=== PATIENT | female | born 1975 | race Caucasian/White ===

== ENCOUNTER 2017-02-21 14:19 | Emergency (ER) | payer OTHER ==
[~2017-02-21] VITALS: Ht 160 cm; Wt 77.5 kg
[2017-02-21 14:24] VITALS: Ht 160 cm; Wt 77.5 kg
--- NOTE | 2017-02-21 15:19 | ERD ---
ER Documentation Chief Complaint Date/Time DATE: 02/21/17 Chief Complaint Vaginal bleeding, HPI The patient is a 41-year-old female, A0 who presents to the emergency department with complaint of vaginal bleeding. The patient reports that her last menstrual period was in September 2016, and she believes that she is approximately 17 weeks . However, she has not yet seen an STOREKEEPER HELPER, and has not had an ultrasound yet during this . The patient reports that earlier today she engaged in sexual activity. Approximally 1 hour ago, after using the restroom, she wiped and noted a small amount of vaginal spotting on the toilet paper. The bleeding has since mostly resolved. Therefore, she decided to present to the emergency department for further evaluation. She denies any abdominal pain, pelvic pain or cramping. Denies dysuria, hematuria, flank pain. Denies fevers, sweats, chills, nausea, vomiting or diarrhea. Denies any dizziness, weakness, chest pain, palpitations, shortness of breath or lower extremity swelling. No other complaints at this time. ROS All systems reviewed and are negative except as per history of present illness. Physical Exam Vitals Vital Signs Date Time Temp Pulse Resp B/P Pulse Ox O2 Delivery O2 Flow Rate FiO2 02/21/17 14:24 98.5 100 18 154/74 96 Physical Exam GENERAL APPEARANCE: Well-developed, well-nourished female in no acute distress. HEENT: Head is normocephalic, atraumatic. No scleral pallor or icterus. Pupils are equal, round, reactive to light. Extraocular movements intact. Moist mucous membranes. NECK: Supple. No masses. No tenderness. No lymphadenopathy. RESPIRATORY: Lungs are clear to auscultation bilaterally. No rales, rhonchi, or wheezing. CARDIOVASCULAR: Regular rate and rhythm. S1, S2 normal. Distal pulses are palpable 2+ bilaterally. Capillary refill is less than 2 seconds. GASTROINTESTINAL: Abdomen is soft, nondistended, nontender. No guarding. No rebound tenderness. No gross peritonitis. FLANKS: No CVA tenderness bilaterally. BACK: No midline tenderness or paraspinal muscle tenderness. EXTREMITIES: No clubbing, cyanosis or edema. Normal skin perfusion. Moving all extremities. No calf swelling or calf tenderness. NEUROLOGIC: The patient is alert, awake and oriented x3. INTEGUMENT: Skin is intact warm and dry. No rashes or petechiae present. PSYCHIATRIC: Cooperative. Appropriate. Result Diagram: 02/21/17 1531 Results 24 hrs Laboratory Tests Test 02/21/17 15:20 02/21/17 15:31 Urine Color YELLOW Urine Clarity SLIGHTLY CLOUDY Urine pH 5.0 Urine Specific [place] 1.013 Urine Ketones NEGATIVEmg/dL Urine Nitrite NEGATIVEmg/dL Urine Bilirubin NEGATIVEmg/dL Urine Urobilinogen NEGATIVEmg/dL Urine Leukocyte Esterase NEGATIVELeu/ul Urine Microscopic RBC 13/HPF Urine Microscopic WBC 1/HPF Urine Squamous Epithelial Cells FEW/HPF Urine Bacteria FEW/HPF Urine Hemoglobin 2+mg/dL Urine Glucose NEGATIVEmg/dL Urine Total Protein NEGATIVEmg/dl White Blood Count 7.310^3/ul Red Blood Count 4.2510^6/ul Hemoglobin 12.5g/dl Hematocrit 37.7% Mean Corpuscular Volume 88.7fl Mean Corpuscular Hemoglobin 29.4pg Mean Corpuscular Hemoglobin Concent 33.2g/dl Red Cell Distribution Width 15.1% Platelet Count 62942^3/UL Mean Platelet Volume 11.7fl Neutrophils % 67.6% Lymphocytes % 23.4% Monocytes % 7.1% Eosinophils % 1.1% Basophils % 0.5% Nucleated Red Blood Cells % 0.0/100WBC Neutrophils # (Manual) 4.910^3/ul Lymphocytes # 1.710^3/ul Monocytes # 0.510^3/ul Eosinophils # 0.110^3/ul Basophils # 0.010^3/ul Nucleated Red Blood Cells # 0.010^3/ul Beta HCG, Quantitative 120162.0mIU/ml Procedures/[facility] EMERGENCY DEPARTMENT COURSE: The patient was stable throughout the ED course. Laboratory testing and ultrasound imaging performed. On reevaluation, the patient reports no new complaints, and remains hemodynamically stable. DIAGNOSTIC TESTS AND INTERPRETATION: PROCEDURE: US OB. CLINICAL INDICATION: Vaginal Bleed () TECHNIQUE: Multiple sonographic images of the pelvis were obtained. The images were reviewed on a PACS workstation. COMPARISON: No prior studies are available for comparison. FINDINGS: There is a single viable intrauterine gestation. Cardiac activity is present with 179.3 beats per minute. There is variable presentation. Measurements were made in order to determine age. The results are as follows: BPD = 2.68 cm HC = 9.8 cm AC = 8.58 cm FL = 1.34 cm. Estimated gestational age of approximately 14 weeks 4 days. The estimated date of delivery is 08/18/2017. The placenta is posterior, grade 0 with a complete previa noted. There is no evidence for an abruption. There are no adnexal masses.. IMPRESSION: 1. Single viable intrauterine gestation of approximately 14 weeks 4 days. The estimated date of delivery is 08/18/2017 . 2. Complete placenta previa. .Rommel Raymond MD, MD Date Time Electronically viewed and signed by .Rommel Raymond MD, on 02/21/2017 16:02 CONSULTATION: Dr. Fuentes, STOREKEEPER HELPER specialist on-call at 4:22 pm. Discussed patient history, presentation and ultrasound imaging results. At this time, given that patient is hemodynamically stable, with no heavy bleeding/hemorrhage , he recommends that she be discharged home to follow up with her STOREKEEPER HELPER for formal diagnostic ultrasound. Recommends absolutely no sexual activity until placenta moves and she is cleared by her doctor. Dr. Fuentes's recommendations discussed at length with the patient. The patient was provided a copy of all her result and advised to follow up with OB/ SENIOR PROCESS ENGINEER within 1-3 day for further evaluation. Patient agrees with plan. MEDICAL DECISION MAKING: The possibility of threatened was discussed with the patient and she was told to follow up with her STOREKEEPER HELPER within 2-3 days for re-evaluation. The patient complies and agrees with plan. This is a 41-year-old female presenting to the Emergency Department complaining of vaginal bleeding. She had no significant abnormalities noted on physical examination. Differential diagnosis includes, but is not limited to, ectopic , cervicitis, fibroids, molar , implantation bleeding , heterotopic , septic , missed , incomplete , inevitable , threatened , complete , coagulopathy, fibroids, adenomyosis, endometriosis, neoplasia, vaginitis, PID, vaginal trauma , dysfunctional uterine bleeding, placenta previa, placenta abruption, vasa previa. Beta hCG is 103,430. Rh (+), no indication for RhoGAM. Hemoglobin and hematocrit normal, no severe anemia. Ultrasound performed revealed a single viable intrauterine gestation of approximately 14 weeks 4 days. Additionally, complete placenta previa was noted. STOREKEEPER HELPER was consulted. After rest, the patient reports no new complaints. Upon review and interpretation of the patient's presentation and overall ER course, I believe the patient's symptoms are most consistent with threatened , vaginal bleeding during and placenta previa. At this time the patient patient is in stable condition with and therefore she be discharged home with strict return precautions for signs of deteriorating or worsening condition. The patient is advised to follow up with her STOREKEEPER HELPER within 1-3 days for reevaluation and further management, or return to the ER sooner for any worsening symptoms. She was strongly advised against all sexual activity until permitted to engage in sexual activity by her STOREKEEPER HELPER. Patient advised to return to the ED immediately for any heavy bleeding. I shared all laboratory and diagnostic imaging studies with the patient at length and in great detail, and the patient verbally understands and agrees with the plan for further observation and care as an outpatient. At the time of discharge, all questions were answered. Departure Diagnosis: Primary Impression: Vaginal bleeding in patient at less than 20 weeks gestation Additional Impressions: Threatened Placenta previa Trimester: second trimester Qualified Code: O44.02 - Placenta previa in second trimester Condition: Stable Patient Instructions: Bleeding During Early , Placenta Previa, Possible Miscarriage (Threatened ) Additional Instructions: Call your STOREKEEPER HELPER TOMORROW for an appointment during the next 1-2 days.See the doctor sooner or return here if your condition worsens before your appointment time. NO SEX UNTIL CLEARED BY YOUR STOREKEEPER HELPER! JOI FRAIRE PA-C Feb 21, 2017 15:19
[2017-02-21 15:42] LABS: BASOPHILS % 0.5 % (0.0-2.0); EOSINOPHILS # 0.1 10^3/ul (0.0-0.5); EOSINOPHILS % 1.1 % (0.0-7.0); HEMATOCRIT 37.7 % (37.0-47.0); HEMOGLOBIN 12.5 g/dl (12.0-16.0); LYMPHOCYTES # 1.7 10^3/ul (0.8-2.9); LYMPHOCYTES % 23.4 % (15.0-51.0); MEAN CORPUSCULAR HEMOGLOBIN 29.4 pg (29.0-33.0); MEAN CORPUSCULAR HGB CONC 33.2 g/dl (32.0-37.0); MEAN CORPUSCULAR VOLUME 88.7 fl (82.0-101.0); MEAN PLATELET VOLUME 11.7 fl (7.4-10.4); MONOCYTE # 0.5 10^3/ul (0.3-0.9); MONOCYTES % 7.1 % (0.0-11.0); NEUTROPHILS % 67.6 % (39.0-77.0); PLATELET COUNT 256 10^3/UL (140-415); RED BLOOD COUNT 4.25 10^6/ul (4.20-5.40); RED CELL DISTRIBUTION WIDTH 15.1 % (11.5-14.5); WHITE BLOOD COUNT 7.3 10^3/ul (4.8-10.8)
[2017-02-21 15:46] LABS: ADD UMIC YES; UR ASCORBIC ACID 40 mg/dL (NEGATIVE); UR BACTERIA FEW /HPF (NONE SEEN); UR BILIRUBIN (Dip) NEGATIVE (NEGATIVE); UR BLOOD (Dip) 2+ mg/dL (NEGATIVE); UR CLARITY SLIGHTLY CLOUDY (CLEAR); UR COLOR YELLOW (YELLOW); UR GLUCOSE (Dip) NEGATIVE (NEGATIVE); UR KETONES (Dip) NEGATIVE (NEGATIVE); UR LEUKOCYTE ESTERASE (Dip) NEGATIVE Leu/ul (NEGATIVE); UR NITRITE (Dip) NEGATIVE (NEGATIVE); UR RBC 13 /HPF (0-5); UR SPECIFIC GRAVITY (Dip) 1.013 (1.003-1.030); UR SQUAMOUS EPITHELIAL CELL FEW /HPF (FEW); UR TOTAL PROTEIN (Dip) NEGATIVE (NEGATIVE); UR UROBILINOGEN (Dip) NEGATIVE (NEGATIVE)
--- NOTE | 2017-02-21 16:03 | RADRPT ---
PROCEDURE: US OB. CLINICAL INDICATION: Vaginal Bleed () TECHNIQUE: Multiple sonographic images of the pelvis were obtained. The images were reviewed on a PACS workstation. COMPARISON: No prior studies are available for comparison. FINDINGS: There is a single viable intrauterine gestation. Cardiac activity is present with 179.3 beats per m inute. There is variable presentation. Measurements were made in order to determine age. The results are as follows: BPD =2.68 cm HC =9.8 cm AC =8.58 cm FL =1.34 cm. Estimated gestational age of approximately 14 weeks 4 days. The estimated date of delivery is 08/18/2017. The placenta is posterior, grade 0 with a complete previa noted. There is no evidence for an abrupti on. There are no adnexal masses.. IMPRESSION: 1. Single viable intrauterine gestation of approximately 14 weeks 4 days. The estimated date of del bell is 08/18/2017 . 2. Complete placenta previa. RPTAT: [facility] .Rommel Raymond MD, Date Time Electronically viewed and signed by .Rommel Raymond MD, on 02/21/2017 16:02 .M/
== END 2017-02-21 17:29 | disposition home or self-care (01) ==
LOC: FTE 14:19
DX: O20.9 Hemorrhage in early pregnancy, unspecified (principal); O20.0 Threatened abortion; O44.02 Complete placenta previa NOS or without hemorrhage, second trimester; Z3A.14 14 weeks gestation of pregnancy
CPT/HCPCS: 36415; 76805; 81001; 84702; 85025; 86900; 86901; Z7502